=== PATIENT | male | born 1935 | race Two or more races ===

== ENCOUNTER 2019-09-22 14:09 | Inpatient (IN) | payer OTHER ==
[~2019-09-22] VITALS: Ht 165.1 cm; Wt 70.3 kg
[2019-09-22] MEDS ORDERED: COZAAR25 MG PO (14:13)
[2019-09-22] MEDS ORDERED: SIMVASTATIN5 MG (14:13)
[2019-09-22] MEDS ORDERED: RISPERDAL0.25 MG PO (14:13)
[2019-09-22] MEDS ORDERED: NORVASC5 MG PO (14:14)
[2019-09-22] MEDS ORDERED: LASIX20 MG PO (14:14)
[2019-09-22] MEDS ORDERED: ARICEPT10 MG PO (14:14)
[2019-09-22] MEDS ORDERED: SYNTHROID88 MCG PO (14:14)
[2019-09-22] MEDS ORDERED: ASPIR 8181 MG PO (14:14)
--- NOTE | 2019-09-22 14:15 | NUR ---
SE RECIBE PT EN JORY ACOMPANADO DE PARAMEDICOS, QUIEN REFIERE PT FUE REFERIDO DE UN HOGAR POR FIEBRE, DEBILIDAD E HIPOACTIVIDAD.
--- NOTE | 2019-09-22 15:56 | NUR ---
SE ORIENTA PTE SOBRE TX MEDICO EL CUAL REFIERE ENTENDER.SE LE EXTRAEN MUESTRAS BAJO MEDIDAS ASEPTICAS,SE CANALIZA Y SE COLOCA FLUIDOS DE MANTENIMIENTO BAJANDO SIN DIFICULTAD,SE NOTIFICA PLACA PENDIENTE.
--- NOTE | 2019-09-22 16:58 | NUR ---
SE ORIENTA PTE SOBRE INSERCION DE GUTIERREZ LA CUAL REFIERE ENTENDER.SE LE INSERTA BAJO MEDIDAS ASEPTICAS,PTE CON EGRESO COLOR SIRI,CON SEDIMENTACION Y OLOR FETIDO.SE MONICA MUESTRAS PENDIENTES,INCLUYENDO PRUEBA DE TOXICOLOGIA A PETICION E INSISTENCIA DE FAMILIAR(JOHAN).
[2019-10-17] MEDS ORDERED: LEVOFLOXACIN250 MG PO (13:26)
[2019-10-17] MEDS ORDERED: INTESTINEX680 M1 PO (13:27)
[2019-10-17] MEDS ORDERED: TAMS0.4C PO (13:53)
== END 2019-10-17 15:51 | disposition home or self-care (01) | DRG 727 ==
LOC: ER 14:09 → SEC-K 20:07 → SURG 20:07 → SURH 09-24 14:23 → SURG 10-07 16:39 → MEDJ 10-08 15:23
PROVIDERS: ADMIT Internal Medicine
PROC: 0T9B70Z Drainage of Bladder with Drainage Device, Via Natural or Artificial Opening (ICD-10-PCS; principal; 2019-09-22)
PROC: 4A033R1 Measurement of Arterial Saturation, Peripheral, Percutaneous Approach (ICD-10-PCS; 2019-09-22)
PROC: B246ZZZ Ultrasonography of Right and Left Heart (ICD-10-PCS; 2019-09-22)
PROC: 3E0F7GC Introduction of Other Therapeutic Substance into Respiratory Tract, Via Natural or Artificial Opening (ICD-10-PCS; 2019-09-24)
PROC: 3E0336Z Introduction of Nutritional Substance into Peripheral Vein, Percutaneous Approach (ICD-10-PCS; 2019-09-27)
PROC: B54MZZZ Ultrasonography of Right Upper Extremity Veins (ICD-10-PCS; 2019-10-03)
DX: N41.0 Acute prostatitis (principal); A41.51 Sepsis due to Escherichia coli [E. coli]; I50.31 Acute diastolic (congestive) heart failure; R65.20 Severe sepsis without septic shock; N39.0 Urinary tract infection, site not specified; I01.1 Acute rheumatic endocarditis; L03.113 Cellulitis of right upper limb; E44.0 Moderate protein-calorie malnutrition; J45.22 Mild intermittent asthma with status asthmaticus; I11.0 Hypertensive heart disease with heart failure; E03.8 Other specified hypothyroidism; E11.9 Type 2 diabetes mellitus without complications; R31.0 Gross hematuria; G30.0 Alzheimer's disease with early onset; F02.80 Dementia in other diseases classified elsewhere, unspecified severity, without behavioral disturbance, psychotic disturbance, mood disturbance, and anxiety; M62.81 Muscle weakness (generalized); Z79.4 Long term (current) use of insulin

== ENCOUNTER 2021-02-01 15:00 | Inpatient (IN) | payer OTHER ==
[~2021-02-01] VITALS: Ht 172.7 cm; Wt 90.7 kg
[~2021-02-01 15:00] MED LIST: ARICEPT10 MG PO; ASPIR 8181 MG PO; COZAAR25 MG PO; INTESTINEX680 M1 PO; LASIX20 MG PO; LEVOFLOXACIN250 MG PO; NORVASC5 MG PO; RISPERDAL0.25 MG PO; SIMVASTATIN5 MG; SYNTHROID88 MCG PO; TAMS0.4C PO
== END 2021-02-08 18:46 | disposition home or self-care (01) | DRG 872 ==
LOC: ER 15:00 → MEDI 22:10
PROVIDERS: ADMIT Internal Medicine; ATTEND Internal Medicine
PROC: 4A033R1 Measurement of Arterial Saturation, Peripheral, Percutaneous Approach (ICD-10-PCS; principal; 2021-02-01)
PROC: 3E0F7SF Introduction of Other Gas into Respiratory Tract, Via Natural or Artificial Opening (ICD-10-PCS; 2021-02-02)
PROC: CB2YYZZ Tomographic (Tomo) Nuclear Medicine Imaging of Respiratory System using Other Radionuclide (ICD-10-PCS; 2021-02-03)
PROC: 4A12X4Z Monitoring of Cardiac Electrical Activity, External Approach (ICD-10-PCS; 2021-02-05)
DX: A41.52 Sepsis due to Pseudomonas (principal); N39.0 Urinary tract infection, site not specified; I10 Essential (primary) hypertension; E03.9 Hypothyroidism, unspecified; G30.9 Alzheimer's disease, unspecified; F02.80 Dementia in other diseases classified elsewhere, unspecified severity, without behavioral disturbance, psychotic disturbance, mood disturbance, and anxiety; Z20.822 Contact with and (suspected) exposure to COVID-19; I35.0 Nonrheumatic aortic (valve) stenosis; J98.01 Acute bronchospasm; R53.81 Other malaise

== ENCOUNTER 2021-06-28 18:27 | Inpatient (IN) | payer OTHER ==
[~2021-06-28] VITALS: Ht 170.2 cm; Wt 90.7 kg
[2021-06-28] MEDS ORDERED: TAMS0.4C PO (19:02)
[2021-06-28] MEDS ORDERED: GLIMEPIRIDE1 MG (19:02)
[2021-07-05] MEDS ORDERED: LEVOFLOXACIN250 MG PO (17:07)
[2021-07-05] MEDS ORDERED: RISPERIDONE0.25 MG PO (17:07)
[2021-07-05] MEDS ORDERED: AMLODIPINE BESYL5 MG PO (17:07)
[2021-07-05] MEDS ORDERED: ARICEPT10 MG PO (17:07)
[2021-07-05] MEDS ORDERED: ST. JOSEPH ASPI81 M2 PO (17:07)
[2021-07-05] MEDS ORDERED: FAMOTIDINE20 MG PO (17:07)
[2021-07-05] MEDS ORDERED: TAMS0.4C PO (17:07)
[2021-07-05] MEDS ORDERED: LASIX20 MG PO (17:07)
[2021-07-05] MEDS ORDERED: GLIMEPIRIDE1 MG PO (17:07)
[2021-07-05] MEDS ORDERED: LEVOTHYROXINE88 MCG PO (17:07)
[2021-07-05] MEDS ORDERED: INTESTINEX680 M1 PO (17:07)
== END 2021-07-05 20:54 | disposition home or self-care (01) | DRG 689 ==
LOC: ER 18:27 → MEDJ 06-29 13:06
PROVIDERS: ADMIT Internal Medicine; ATTEND Internal Medicine
PROC: BW21ZZZ Computerized Tomography (CT Scan) of Abdomen and Pelvis (ICD-10-PCS; principal; 2021-06-29)
PROC: 3E0F7SF Introduction of Other Gas into Respiratory Tract, Via Natural or Artificial Opening (ICD-10-PCS; 2021-06-29)
PROC: 8E0ZXY6 Isolation (ICD-10-PCS; 2021-06-29)
DX: N39.0 Urinary tract infection, site not specified (principal); A41.9 Sepsis, unspecified organism; E87.1 Hypo-osmolality and hyponatremia; I10 Essential (primary) hypertension; N40.0 Benign prostatic hyperplasia without lower urinary tract symptoms; E86.0 Dehydration; Z20.822 Contact with and (suspected) exposure to COVID-19; N41.8 Other inflammatory diseases of prostate; E03.8 Other specified hypothyroidism; G30.8 Other Alzheimer's disease; F02.80 Dementia in other diseases classified elsewhere, unspecified severity, without behavioral disturbance, psychotic disturbance, mood disturbance, and anxiety; E11.69 Type 2 diabetes mellitus with other specified complication; Z79.4 Long term (current) use of insulin; E66.8 Other obesity